=== PATIENT | male | born 1955 ===

== ENCOUNTER 2018-02-04 18:47 | Emergency (ER) | payer MEDICARE ==
--- NOTE | 2018-02-04 19:45 | C.PDOC ---
History Of Present Illness 62-year-old male, presents to the emergency department with complaints of pain to left wrist and left forearm since yesterday. Patient states he was using his hands and doing a lot of "packaging" yesterday. Denies any direct trauma, nausea /vomiting, chest pain, left shoulder pain numbness/weakness or any other associated symptoms. No other complaints at this time. Time Seen by Provider: 02/04/18 19:29 Chief Complaint (Nursing): Upper Extremity Problem/Injury History Per: Patient History/Exam Limitations: no limitations Onset/Duration Of Symptoms: Days Current Symptoms Are (Timing): Still Present Past Medical History Reviewed: Historical Data, Nursing Documentation, Vital Signs Vital Signs: Last Vital Signs Temp 99.9 F H 02/04/18 20:23 Pulse 53 L 02/04/18 20:23 Resp 16 02/04/18 20:23 BP 157/54 H 02/04/18 20:23 Pulse Ox 96 02/04/18 21:06 - Medical History PMH: Anxiety, Asthma, Depression, Emphysema, Gastritis, HTN, Osteoporosis, Rheumatoid Arthritis Denies: Chronic Kidney Disease Surgical History: Coronary Stent, Endoscopy (x 24 years ago) - [facility] Procedures ABD WALL ANDREA REPAIR NEC (03/03/13) Family History: States: No Known Family Hx - Social History Hx Tobacco Use: No Hx Alcohol Use: No Hx Substance Use: No - Immunization History Hx Tetanus Toxoid Vaccination: No Hx Influenza Vaccination: No Hx Pneumococcal Vaccination: No Review Of Systems Constitutional: Negative for: Fever Cardiovascular: Negative for: Chest Pain Gastrointestinal: Negative for: Nausea, Vomiting Musculoskeletal: Positive for: Arm Pain, Hand Pain Neurological: Negative for: Weakness, Numbness Physical Exam - Physical Exam Appears: Non-toxic, No Acute Distress Skin: Normal Color, Warm, Dry, No Rash Head: Atraumatic Eye(s): bilateral: Normal Inspection Neck: Normal ROM Respiratory: Normal Breath Sounds, Other (n apparent respiratory distress) Extremity: Normal ROM, Tenderness (left wrist and thumb. ), Capillary Refill (< 2 seconds), No Deformity, No Swelling Pulses: Left Radial: Normal, Right Radial: Normal Neurological/Psych: Oriented x3, Normal Speech ED Course And Treatment O2 Sat by Pulse Oximetry: 96 Pulse Ox Interpretation: Normal (RA) Medical Decision Making Medical Decision Making: Pts hand placed in Volar splint and instructed to f/u outpatient. Pt with a Hx of hypertension, has elevated BP , asymptomatic in ED but non- compliant with his medication. He's advised to take his medications as prescribed when he goes home. Disposition Counseled Patient/Family Regarding: Diagnosis, Need For Followup, Rx Given - Disposition Referrals: [facility] [Outside] Disposition: HOME/ ROUTINE Disposition Time: 19:44 Condition: STABLE Additional Instructions: Please follow up with PMD KEEP splint for support PLEASE TAKE BP MEDICATION ON ARRIVAL HOME Take medications as directed Return to ER if worse Prescriptions: Ibuprofen [Motrin] 600 mg PO Q6H #20 tab Instructions: Wrist Sprain (DC) Forms: [employer] (Mauritian) - Clinical Impression Clinical Impression: Left wrist sprain - Scribe Statement The provider has reviewed the documentation as recorded by the Scribe (Boo Echevarria) All medical record entries made by the Scribe were at my direction and personally dictated by me. I have reviewed the chart and agree that the record accurately reflects my personal performance of the history, physical exam, medical decision making, and the department course for this patient. I have also personally directed, reviewed, and agree with the discharge instructions and disposition.
[2018-02-04 20:25] VITALS: BP 157/54; PULSE 53; RESP 16; TEMP 99.9
[2018-02-04 20:26] VITALS: O2SAT 96
== END 2018-02-04 20:31 | disposition home or self-care (01) ==
LOC: C.ER 18:47
DX: S63.502A Unspecified sprain of left wrist, initial encounter (principal); X58.XXXA Exposure to other specified factors, initial encounter
CPT/HCPCS: 29125; 96372; 99285; J1885

== ENCOUNTER 2018-09-23 13:07 | Outpatient (CLI) | payer MEDICARE | END 2018-09-23 13:08 | disposition home or self-care (01) | LOC: C.LAB 13:07 | DX: Z01.818 Encounter for other preprocedural examination (principal) ==

== ENCOUNTER 2018-09-27 09:25 | Outpatient (CLI) | payer MEDICARE | END 2018-09-27 09:26 | disposition home or self-care (01) | LOC: C.CTH 09:25 | DX: R10.9 Unspecified abdominal pain (principal) ==

== ENCOUNTER 2018-10-08 15:52 | Outpatient (CLI) | payer MEDICARE | END 2018-10-08 15:53 | disposition home or self-care (01) | LOC: C.RADH 15:52 ==

== ENCOUNTER 2018-10-11 11:53 | Outpatient (CLI) | payer MEDICARE | END 2018-10-11 11:54 | disposition home or self-care (01) | LOC: C.LAB 11:53 → C.RADH 11:54 ==